=== PATIENT | female | born 2000 | race Two or more races ===

== ENCOUNTER 2023-09-02 10:12 | Emergency (ER) | payer OTHER ==
[~2023-09-02] VITALS: Ht 152.4 cm; Wt 56.2 kg
[~2023-09-02 10:12] MED LIST: BUDESONIDE0.25 MG/2 IH; IMODIUM A-D2 M1; PHENAGIL CH TA1 EACH PO; PROVENTIL3 ML/2.5 M IH; ROBITUSSIN COU118 ML
[2023-09-02 11:41] LABS: HEMATOCRIT 40.3 % (36.0-45.00); HEMOGLOBIN 13.9 g/dL (12.0-15.00); MEAN CELL VOLUME 95.8 fL (80.00-100.00); MEAN CORPUSCULAR HGB CONC 34.5 g/dl (32.0-36.0); PLATELET COUNT 244 K/uL (150-450); RED CELL DISTRIBUTION WIDTH 12.5 % (11.5-14.5)
[2023-09-02 12:31] LABS: ALKALINE PHOSPHATASE 65 U/L (50-136); ALT/SGPT 18 U/L (12-78); AMYLASE 35 U/L (25-115); ANION GAP 9 (10.0-20.0); AST/SGOT 7 U/L (15-37); BILIRUBIN TOTAL 0.94 mg/dL (0.3-1.2); BLOOD UREA NITROGEN 21 mg/dL (7-18); BUN CREA RATIO 27 (7.0-25.0); CALCIUM 9.7 mg/dL (8.5-10.1); CARBON DIOXIDE 28 mEq/L (21-32); CHLORIDE 108 mmol/L (98-107); CREATININE SERUM 0.78 mg/dL (0.55-1.02); GFR 91.52; GLOBULINA 3.8 G/DL (2.4-3.5); GLUCOSE FASTING 125 mg/dL (65-100); LIPASE 11 U/L (13-75); OSMOLALITY SERUM 284 MOSM/KG (275-295); POTASSIUM 4.53 mEq/L (3.5-5.1); SODIUM 140 mmol/L (136-145); TOTAL PROTEIN 7.8 gm/dL (6.4-8.2)
[2023-09-02 12:44] LABS: HCG QUANTITATIVE < 1 mUI/mL (1-3)
== END 2023-09-02 13:38 | disposition home or self-care (01) ==
LOC: ER 10:12
PROVIDERS: General Practice
DX: K52.89 Other specified noninfective gastroenteritis and colitis (principal)